=== PATIENT | male | born 1980 | race Caucasian/White ===

== ENCOUNTER 2025-05-28 11:28 | Emergency (ER) | payer SELFPAY | END 2025-05-28 12:33 | disposition home or self-care (01) | LOC: JD.ED 11:28 | DX: S50.11XA Contusion of right forearm, initial encounter (principal); F17.210 Nicotine dependence, cigarettes, uncomplicated; Z88.0 Allergy status to penicillin; W23.0XXA Caught, crushed, jammed, or pinched between moving objects, initial encounter | CPT/HCPCS: 73090-26-RT; 73090-RT; 99283 ==